=== PATIENT | female | born 1990 ===

== ENCOUNTER 2017-09-30 11:30 | Emergency (ER) | payer BC ==
[2017-09-30 11:51] VITALS: BMI 33.8
[2017-09-30 11:52] VITALS: BP 127/64; PULSE 72; RESP 17; TEMP 98; O2SAT 100
--- NOTE | 2017-09-30 13:55 | ED PDOC ---
HPI: Female Pain Time Seen by Provider: 09/30/17 11:55 Chief Complaint (Nursing): Abdominal Pain Chief Complaint (Provider): Vaginal Discharge History Per: Patient History/Exam Limitations: no limitations Current Symptoms Are (Timing): Still Present Additional Complaint(s): Patient reports yellow vaginal discharge that began after her period ended a few days ago. She also complains of pubic discomfort which she describes as crampy. Patient is sexually active with one partner, her . Otherwise: (- ) abdominal pain, (-) dysuria, (-) recent antibiotic use, (-) fever, (-) vomiting. Last Menstral Period: 09/21/17 Past Medical History Reviewed: Historical Data, Nursing Documentation, Vital Signs Vital Signs: Last Vital Signs Temp 98 F 09/30/17 11:51 Pulse 72 09/30/17 11:51 Resp 17 09/30/17 11:51 BP 127/64 09/30/17 11:51 Pulse Ox 100 09/30/17 11:51 - Medical History PMH: Asthma - Family History Family History: States: Unknown Family Hx - Immunization History Hx Tetanus Toxoid Vaccination: No Hx Influenza Vaccination: No Hx Pneumococcal Vaccination: No - Home Medications Home Medications: Ambulatory Orders Medication Instructions Recorded Albuterol 0.042% [Albuterol 0.042% 3 ml IH Q6 PRN 04/01/16 Inhal Lilian (1.25mg/3ml) UD] Docusate [Colace] 100 mg PO TID #60 cap 04/01/16 Hydrocortisone 2.5% (Rectal) 30 applic PA BID #1 tube 04/01/16 [Anusol-HC] Radha Sanchez [Tucks] 1 each TP DAILY #40 pad 04/01/16 metroNIDAZOLE 0.75% [Metrogel 45 gm EXT HS #1 tube 04/01/16 Cream] Metronidazole [Metrogel-Vaginal] 1 ea VG QPM #5 gel 09/30/17 Nitrofurantoin Macrocrystals 100 mg PO BID #14 cap 09/30/17 [Macrobid] - Allergies Allergies/Adverse Reactions: Allergies Allergy/AdvReac Type Severity Reaction Status Date / Time No Known Allergies Allergy Verified 04/01/16 13:33 Review of Systems ROS Statement: Except As Marked, All Systems Reviewed And Found Negative Constitutional: Negative for: Fever Gastrointestinal: Negative for: Vomiting Genitourinary Female: Positive for: Vaginal Discharge (yellow), Pelvic Pain. Negative for: Dysuria, Frequency, Incontinence, Hematuria Physical Exam - Physical Exam Comments: GENERAL APPEARANCE : Patient is awake, alert, oriented x 3, in no acute distress. SKIN: Warm, dry; (-) cyanosis. ABDOMEN AND GI: Soft, (-) tenderness. PELVIC: Normal external genitalia; (-) vesicles, (-) ulcers, (+) yellow vaginal discharge; (-) bleeding, (-) pain on cervical motion. Uterus normal. No adnexal mass or tenderness. A female RN tree killer was present with me during the entire examination. EXTREMITIES: (-) deformity. - ECG O2 Sat by Pulse Oximetry: 100 (RA) Pulse Ox Interpretation: Normal Medical Decision Making Medical Decision Making: Time: 12:03 Initial Impression: Vaginal Discharge Initial Plan: --Urine & Dip Reevaluation: --Urine HcG negative --Positive nitrate with trace leuks seen in UA --Urine Culture sent --GC Culture sent Disposition: UTI --Discussed with patient disposition. Patient was advised to visit outpatient follow up. Scribe Attestation: Documented by Carlos Smith, acting as a scribe for Maddy Eubanks PA-C. Provider Scribe Attestation: All medical record entries made by the Scribe were at my direction and personally dictated by me. I have reviewed the chart and agree that the record accurately reflects my personal performance of the history, physical exam, medical decision making, and the department course for this patient. I have also personally directed, reviewed, and agree with the discharge instructions and disposition. Disposition - Clinical Impression Clinical Impression: UTI (urinary tract infection), Bacterial vaginitis - Patient ED Disposition Is Patient to be Admitted: No Counseled Patient/Family Regarding: Studies Performed, Diagnosis, Need For Followup, Rx Given - Disposition Disposition: Routine/Home Disposition Time: 12:15 Condition: STABLE Additional Instructions: Thank you for letting us take care of you today. You were treated for UTI, bacterial vaginosis. The emergency medical care you received today was directed at your acute symptoms. If you were prescribed any medication, please fill it and take as directed. It may take several days for your symptoms to resolve. Return to the Emergency Department if your symptoms worsen, do not improve, or if you have any other problems. Please contact your doctor in 2 days for re-evaluation and follow up. Bring any paperwork you were given at discharge with you along with any medications you are taking to your follow up visit. Our treatment cannot replace ongoing medical care by a primary care provider (PCP) outside of the emergency department. Thank you for allowing the [facility] team to be part of your care today. 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
[2017-09-30 14:48] LABS: SQUAMOUS EPITHIAL 38 /hpf (0-5); URINE BILIRUBIN NEGATIVE (NEGATIVE); URINE BLOOD LARGE (NEGATIVE); URINE CLARITY CLOUDY (Clear); URINE COLOR AMBER (YELLOW); URINE GLUCOSE (UA) NEG (Normal); URINE LEUKOCYTE ESTERASE LARGE Leu/uL (Negative); URINE NITRATE NEGATIVE (NEGATIVE); URINE PROTEIN 100 mg/dL (NEGATIVE); URINE UROBILINOGEN 0.2-1.0 mg/dL (0.2-1.0)
[2017-09-30 14:49] LABS: URINE BACTERIA MOD (<OCC)
== END 2017-09-30 13:10 | disposition home or self-care (01) ==
LOC: H.ER 11:30
DX: N76.0 Acute vaginitis (principal); N39.0 Urinary tract infection, site not specified